=== PATIENT | female | born 1955 | race Caucasian/White ===

== ENCOUNTER 2018-09-20 10:52 | Outpatient (CLI) | payer BC ==
[2018-09-20 17:36] LABS: BASOPHILS % (AUTO) 0.5 %; EOSINOPHILS % (AUTO) 0.5 %; HGB - HEMOGLOBIN 12.5 g/dL (12.0-16.0); LYMPHOCYTES # (AUTO) 1.5 10^3/uL (1.5-3.5); LYMPHOCYTES % (AUTO) 20.6 %; MEAN CORPUSCULAR HEMOGLOBIN 30.9 pg (27.0-31.0); MEAN CORPUSCULAR HGB CONC 33.3 g/dL (32.0-36.0); MEAN CORPUSCULAR VOLUME 92.8 fL (81.0-99.0); MEAN PLATELET VOLUME 12.1 fL (7.9-10.8); MONOCYTES # (AUTO) 0.7 10^3/uL (0.0-1.0); MONOCYTES % (AUTO) 9.6 %; NEUTROPHILS # (AUTO) 5.1 10^3/uL (1.5-6.6); NEUTROPHILS % (AUTO) 68.5 %; PLT - PLATELET COUNT 237 10^3/uL (130-450); RED BLOOD COUNT 4.04 10^6/uL (4.20-5.40); RED CELL DISTRIBUTION WIDTH 15.6 % (12.0-15.0); WHITE BLOOD COUNT 7.5 x10^3/uL (4.8-10.8)
[2018-09-20 18:02] LABS: ALBUMIN 4.2 g/dL (3.2-5.5); ALBUMIN/GLOBULIN RATIO 1.4 (1.0-2.2); BILIRUBIN,TOTAL 0.6 mg/dL (0.2-1.0); CREATININE 0.8 mg/dL (0.4-1.0); TOTAL PROTEIN 7.1 g/dL (6.7-8.2)
== END 2018-09-20 10:53 | disposition home or self-care (01) ==
LOC: LAB.S 10:52
PROVIDERS: ATTEND Nurse Practitioner Family
DX: J84.112 Idiopathic pulmonary fibrosis (principal)
CPT/HCPCS: 36415; 80053; 85025

== ENCOUNTER 2018-10-19 11:22 | Outpatient (CLI) | payer BC ==
[2018-10-19 17:35] LABS: BASOPHILS % (AUTO) 0.5 %; EOSINOPHILS % (AUTO) 0.5 %; HGB - HEMOGLOBIN 12.5 g/dL (12.0-16.0); LYMPHOCYTES # (AUTO) 1.3 10^3/uL (1.5-3.5); LYMPHOCYTES % (AUTO) 21.4 %; MEAN CORPUSCULAR HEMOGLOBIN 31.3 pg (27.0-31.0); MEAN CORPUSCULAR HGB CONC 33.2 g/dL (32.0-36.0); MEAN PLATELET VOLUME 12.1 fL (7.9-10.8); MONOCYTES # (AUTO) 0.7 10^3/uL (0.0-1.0); MONOCYTES % (AUTO) 10.4 %; NEUTROPHILS # (AUTO) 4.2 10^3/uL (1.5-6.6); PLT - PLATELET COUNT 228 10^3/uL (130-450); RED CELL DISTRIBUTION WIDTH 14.4 % (12.0-15.0); WHITE BLOOD COUNT 6.3 x10^3/uL (4.8-10.8)
[2018-10-19 17:52] LABS: ALBUMIN 4.2 g/dL (3.2-5.5); ALBUMIN/GLOBULIN RATIO 1.4 (1.0-2.2); BILIRUBIN,TOTAL 0.4 mg/dL (0.2-1.0); CALCIUM 9.4 mg/dL (8.5-10.3); CREATININE 0.7 mg/dL (0.4-1.0); TOTAL PROTEIN 7.1 g/dL (6.7-8.2)
== END 2018-10-19 11:23 | disposition home or self-care (01) ==
LOC: LAB.S 11:22
PROVIDERS: ATTEND Nurse Practitioner Family
DX: J84.112 Idiopathic pulmonary fibrosis (principal)
CPT/HCPCS: 36415; 80053; 85025

== ENCOUNTER 2020-01-17 16:41 | Outpatient (CLI) | payer BC | END 2020-01-17 16:42 | disposition home or self-care (01) | LOC: COV 16:41 | PROVIDERS: ATTEND Family Medicine | DX: Z01.812 Encounter for preprocedural laboratory examination (principal); Z20.828 Contact with and (suspected) exposure to other viral communicable diseases; R06.02 Shortness of breath; J84.9 Interstitial pulmonary disease, unspecified ==

== ENCOUNTER 2020-04-28 12:41 | Outpatient (CLI) | payer BC ==
[2020-04-28 15:32] LABS: ALBUMIN 4.2 g/dL (3.2-5.5); ALBUMIN/GLOBULIN RATIO 1.4 (1.0-2.2); BILIRUBIN,TOTAL 0.5 mg/dL (0.2-1.0); CALCIUM 9.2 mg/dL (8.5-10.3); CREATININE 0.8 mg/dL (0.4-1.0); TOTAL PROTEIN 7.3 g/dL (6.7-8.2)
== END 2020-04-28 12:42 | disposition home or self-care (01) ==
LOC: LAB.S 12:41
PROVIDERS: ATTEND Internal Medicine Pulmonary Disease
DX: J84.112 Idiopathic pulmonary fibrosis (principal)
CPT/HCPCS: 36415; 80053